=== PATIENT | male | born 1985 | race Two or more races ===

== ENCOUNTER 2017-07-01 05:45 | Day surgery (SDC) | payer OTHER ==
[2017-07-01] MEDS ORDERED: Lactated Ringers 1,000 ML IV SCH (07:00)
[2017-07-01] MEDS ORDERED: Povidone-Iodine 10% Soln 118.25 ML Bottle ONE (07:05)
[2017-07-01] MEDS ORDERED: Ondansetron 4 MG/2 ML SDV ONE (07:26)
[2017-07-01] MEDS ORDERED: Propofol 200 MG/20 ML SDV ONE (07:26)
[2017-07-01] MEDS ORDERED: Dexamethasone 4 MG/ML SDV ONE (07:26)
[2017-07-01] MEDS ORDERED: Midazolam 1 MG/ML 2 ML SDV ONE (07:26)
[2017-07-01] MEDS ORDERED: Glycopyrrolate 0.2 MG/ML 5 ML MDV ONE (07:26)
[2017-07-01] MEDS ORDERED: Neostigmine Methylsulfate 1 MG/ML 5 ML Syringe ONE (07:26)
[2017-07-01] MEDS ORDERED: Rocuronium 50 MG/5 ML Vial ONE (07:26)
[2017-07-01] MEDS ORDERED: Succinylcholine 200 MG/10 ML MDV ONE (07:26)
[2017-07-01] MEDS ORDERED: Clindamycin Phosphate 900 MG in Sodium Chloride 0.9% 100 ML IV ONE (07:30)
[2017-07-01] MEDS: Bupivacaine 0.5% 50 ML MDV ONE ×2 (08:03→08:49)
[2017-07-01] MEDS ORDERED: Lactated Ringers 1,000 ML ONE (08:45)
[2017-07-01] MEDS ORDERED: fentaNYL 100 MCG/2 ML SDV IVPUSH ONE (09:26)
[2017-07-01] MEDS ORDERED: Acetaminophen/HYDROcodone 325-5 MG Tab PO PRN (10:14)
[2017-07-01] MEDS ORDERED: Ketorolac 60 MG/2 ML SDV IM ONE (10:45)
[2017-07-01 11:04] VITALS: BP 124/94
--- NOTE | 2017-07-01 13:26 | OR ---
DATE OF PROCEDURE: 07/01/2017 PREOPERATIVE DIAGNOSES: Right thumb trigger thumb, right cubital tunnel syndrome, and right carpal tunnel syndrome. POSTOPERATIVE DIAGNOSES: Right carpal tunnel syndrome, right cubital tunnel syndrome, and right thumb ganglion cyst. PROCEDURE: Right carpal tunnel release, right ganglion cyst removal, and right ulnar nerve transposition. DEPUTY FELONY CLERK: MALATHI Gabriel. FLUID: Lactated Ringer's solution. ESTIMATED BLOOD LOSS: Less than 10 mL. COMPLICATIONS: None. SPECIMEN: None. DISCHARGE DISPOSITION: Stable to PACU. INDICATIONS FOR THE PROCEDURE: The patient was seen preoperatively in the clinic. He had bilateral mild carpal tunnel syndrome. However, he had physical findings more suggestive of moderate carpal tunnel syndrome as well as cubital tunnel syndrome. He also had a large nodule at the A1 evelia with triggering. Risks and benefits of the procedure were explained to the patient. Informed consent was obtained. DETAILS OF PROCEDURE: The patient was seen preoperatively by myself and the Anesthesia staff in the preoperative holding area where the operative site was marked. He was brought to the operative suite by Anesthesia staff where general anesthesia was administered. A well-padded tourniquet was placed on the right upper extremity. The right upper extremity was then prepped and draped in a sterile manner. Time-out was called identifying the correct patient, correct procedure, the correct site, and antibiotics had begun with appropriate period of time. The right upper extremity was exsanguinated. Tourniquet was raised to 250 mmHg for 46 minutes and let down prior to closure of the cubital tunnel. An incision was made just proximal to Veloz's cardinal line and the in line with the radial border of the 4th digit and carried down to the deep fascia. The self-retaining retractor was then used. The transverse carpal ligament was identified and gone through with a 15 blade. The deep palmar fascia was then incised with Mayos and direct visualization using a Ragnell after being freed with Metzenbaum scissors superficially and deeply. We then made an incision over the A1 evelia and then extended in a Liliana incision. A ganglion cyst was visualized and removed. I did not take this down to the joint, removed as much of the ganglion as I could. The A1 evelia did not have a nodule on it. We then closed both of those incisions with 3-0 nylon after irrigation. We then concentrated on the cubital tunnel. The tip of the olecranon was then identified as well as medial epicondyle. A longitudinal incision was made in the midline approximately 7 cm proximal and distal, carried down to the deep fascia. The ulnar nerve was identified after carefully dissecting using Metzenbaums and pickups. This was then freed proximally and distally and mobilized with a vessel loop. Bleeding was controlled with bipolar electrocautery. I then created myofascial sling and using 3-0 Vicryl, I was able to transpose the nerve up into the myofascial sling, was free with movement of flexion and extension of the elbow. We then let the tourniquet down and controlled bleeders with bipolar electrocautery as well as the Bovie electrocautery unit. We then closed the subcutaneous layer with 2-0 Vicryl suture as well as 3-0 nylon. We then placed Betadine-soaked Adaptic over our incisions followed by sterile dressing followed by Eliu wraps. The patient was then allowed to awaken from general anesthesia, taken to the PACU in stable condition. Rubén Salas DO /[id number]
== END 2017-07-01 11:08 | disposition home or self-care (01) ==
LOC: JP.SDS 05:45
PROVIDERS: ATTEND Orthopaedic Surgery
DX: M65.311 Trigger thumb, right thumb (principal); G56.01 Carpal tunnel syndrome, right upper limb; G56.21 Lesion of ulnar nerve, right upper limb; Z88.0 Allergy status to penicillin; Z79.899 Other long term (current) drug therapy
CPT/HCPCS: 26160; 64718; 64721; A9270; J1100; J1885; J2250; J2405; J2704; J2710; J3010; J7030; J7120; J0330; S0077

== ENCOUNTER 2017-07-06 16:48 | Emergency (ER) | payer OTHER | END 2017-07-06 17:08 | disposition left against medical advice (07) | LOC: JP.ED 16:48 | DX: Z53.21 Procedure and treatment not carried out due to patient leaving prior to being seen by health care provider (principal) ==

== ENCOUNTER 2017-07-29 07:04 | Day surgery (SDC) | payer OTHER ==
[~2017-07-29 07:04] MED LIST: Bupivacaine 0.5% 50 ML MDV ONE; Dexamethasone 4 MG/ML 5 ML MDV ONE; Povidone-Iodine 10% Soln 118.25 ML Bottle ONE
[2017-07-29] MEDS ORDERED: Midazolam 1 MG/ML 2 ML SDV ONE (07:24)
[2017-07-29] MEDS ORDERED: Lidocaine 0.5% 50 ML SDV ONE (07:24)
[2017-07-29] MEDS ORDERED: fentaNYL 100 MCG/2 ML SDV ONE (07:24)
[2017-07-29] MEDS ORDERED: Propofol 200 MG/20 ML SDV ONE ×2 (07:24→08:48)
[2017-07-29] MEDS ORDERED: Lactated Ringers 1,000 ML IV SCH (07:30)
[2017-07-29] MEDS ORDERED: Clindamycin Phosphate 900 MG in Sodium Chloride 0.9% 100 ML IV ONE (08:30)
[2017-07-29] MEDS ORDERED: fentaNYL 100 MCG/2 ML SDV IVPUSH ONE (09:25)
[2017-07-29] MEDS ORDERED: Acetaminophen/HYDROcodone 325-5 MG Tab PO ONE (10:20)
[2017-07-29 11:32] VITALS: BP 126/80
--- NOTE | 2017-07-30 11:47 | OR ---
DATE OF PROCEDURE: 07/29/2017 PREOPERATIVE DIAGNOSIS: Left carpal tunnel syndrome. POSTOPERATIVE DIAGNOSIS: Left carpal tunnel syndrome. PROCEDURE: Left carpal tunnel release. QUALITY IMPROVEMENT ENGINEER: MALATHI Gabriel. ANESTHESIA: Willie block plus conscious sedation. FLUID: Lactated Ringer solution. ESTIMATED BLOOD LOSS: Zero. COMPLICATIONS: None. SPECIMEN: None. DISCHARGE DISPOSITION: Stable to PACU. HISTORY AND INDICATION FOR THE PROCEDURE: The patient is well known to me. We had previously performed a right carpal tunnel surgery and a right cubital tunnel release, which he did very well from. Preoperative EMG showed evidence of mild entrapment of the median nerve at the wrist. Risks and benefits of the procedure were explained to the patient. Informed consent was obtained. DETAILS OF PROCEDURE: The patient was seen preoperatively by myself and the Anesthesia staff in the preoperative holding area, where the operative site was marked. He was brought to the operative suite by the Anesthesia staff, where a Willie block plus conscious sedation was administered. The left upper extremity was prepped and draped in a sterile manner. Time-out was called identifying the correct patient, the correct procedure, the correct site, and that the antibiotics had begun within appropriate period of time. An incision was made just proximal to Veloz's cardinal line in line with the radial border of the fourth digit, extending approximately 1.5 cm. Bleeding was controlled with bipolar electrocautery. Self-retraining retractors were used. The transverse carpal ligament was identified and gone through with a 15 blade. The median nerve was identified, and under direct visualization, using a Ragnell, I went above and below the deep palmar fascia with Metzenbaum scissors and then did direct release of that fascia under direct visualization. We then irrigated with saline. The incision was closed with 3-0 nylon and a sterile dressing was placed. The patient was kept in the OR until the [place] block could be let down at 30 minutes and taken to the PACU in a stable condition. Physician physician assistant primary care, Dena Abdi NP, played an essential role in assisting in this case, helping to position the patient, retract structures as needed, as well as suturing and cutting sutures as indicated. Her presence improved patient's safety and decreased operative time. Rubén Salas DO /[id number]
== END 2017-07-29 11:20 | disposition home or self-care (01) ==
LOC: JP.SDS 07:04
PROVIDERS: ATTEND Orthopaedic Surgery
DX: G56.02 Carpal tunnel syndrome, left upper limb (principal); G47.33 Obstructive sleep apnea (adult) (pediatric); F41.9 Anxiety disorder, unspecified; Z98.890 Other specified postprocedural states; Z88.0 Allergy status to penicillin; Z79.899 Other long term (current) drug therapy
CPT/HCPCS: 64721; A9270; J2250; J2704; J3010; J7030; J7120; J1100; S0077

== ENCOUNTER 2018-02-25 14:21 | Emergency (ER) | payer MEDICARE, OTHER | END 2018-02-25 15:42 | disposition left against medical advice (07) | LOC: JP.ED 14:21 | DX: Z53.21 Procedure and treatment not carried out due to patient leaving prior to being seen by health care provider (principal) ==

== ENCOUNTER 2018-03-21 14:43 | Emergency (ER) | payer MEDICARE, OTHER ==
[2018-03-21 15:15] VITALS: BP 121/65
--- NOTE | 2018-03-21 15:43 | EDM.PDOC ---
ED HPI GENERAL MEDICAL PROBLEM - General Chief Complaint: Upper Extremity Injury/Pain Stated Complaint: R HAND INJURY Time Seen by Provider: 03/21/18 15:30 Source of Information: Reports: Patient History Limitations: Reports: No Limitations - History of Present Illness INITIAL COMMENTS - FREE TEXT/NARRATIVE: 32-year-old male with a right hand injury. He dropped a large heavy box on his right hand last evening. Today it is swollen and painful. No other current injury. He does have chronic pain from bilateral ulnar neuropathy in his arms. Onset: Sudden Location: Reports: Upper Extremity, Right Severity: Moderate Right Hand Pain Score (Numeric/FACES): 7 - Related Data Allergies Allergy/AdvReac Type Severity Reaction Status Date / Time Penicillins Allergy Cannot Verified 03/21/18 15:15 Remember Home Meds: Home Meds Gabapentin [Neurontin] 150 mg PO DAILY 01/22/15 [History] oxyCODONE 10 mg PO .5XDAY 01/22/15 [History] Amitriptyline HCl 75 mg PO BEDTIME 06/16/17 [History] Rizatriptan [Maxalt LICENSED ARCHITECT] 10 mg PO ASDIRECTED PRN 07/01/17 [History] Past Medical History HEENT History: Reports: Allergic Rhinitis, Hard of Hearing, Sinusitis Cardiovascular History: Reports: None Respiratory History: Reports: Sleep Apnea Gastrointestinal History: Reports: None Genitourinary History: Reports: None Musculoskeletal History: Reports: Back Pain, Chronic, Fracture, Neck Pain, Chronic, Osteoarthritis, Other (See Below) Other Musculoskeletal History: L carpal tunnel pain Neurological History: Reports: Concussion, Migraines Psychiatric History: Reports: Anxiety, PTSD Endocrine/Metabolic History: Reports: None Hematologic History: Reports: Anemia Immunologic History: Reports: None Oncologic (Cancer) History: Reports: None Dermatologic History: Reports: None - Infectious Disease History Infectious Disease History: Reports: Chicken Pox - Past Surgical History Head Surgeries/Procedures: Reports: None HEENT Surgical History: Reports: LASIK, Tonsillectomy, Other (See Below) Other HEENT Surgeries/Procedures: Deviated septum Cardiovascular Surgical History: Reports: None Respiratory Surgical History: Reports: None GI Surgical History: Reports: EGD Endocrine Surgical History: Reports: None Neurological Surgical History: Reports: None Musculoskeletal Surgical History: Reports: Carpal Tunnel, Nerve Relocation Other Musculoskeletal Surgeries/Procedures:: right elbow Oncologic Surgical History: Reports: None Dermatological Surgical History: Reports: None Social & Family History - Family History Family Medical History: Noncontributory - Tobacco Use Smoking Status *Q: Current Every Day Smoker Years of Tobacco use: 12 Packs/Tins Daily: 0.5 - Caffeine Use Caffeine Use: Reports: Coffee - Recreational Drug Use Recreational Drug Use: No Review of Systems - Review of Systems Review Of Systems: See Below Constitutional: Denies: Fever Respiratory: Denies: Shortness of Breath GI/Abdominal: Denies: Abdominal Pain Skin: Reports: Bruising (Some bruising is present on the back of the hand) ED EXAM, GENERAL - Physical Exam Exam: See Below Exam Limited By: No Limitations General Appearance: Alert, No Apparent Distress Respiratory/Chest: No Respiratory Distress Extremities: Other (Remainder of exam is limited to the hands. Compared to the left, the right is swollen dorsally with tenderness to palpation over the metacarpals on the palmar and dorsal surface. No significant deformity or crepitus is felt.) Course - Vital Signs Last Recorded V/S: Last Vital Signs Temp 97.2 F 03/21/18 15:11 Pulse 91 03/21/18 15:11 Resp 16 03/21/18 15:11 BP 121/65 03/21/18 15:11 Pulse Ox 16 L 03/21/18 15:11 - Orders/Labs/Meds Orders: Active Orders 24 hr Category Date Time Status Hand Comp Min 3V Rt [CR] Stat Exams 03/21/18 15:38 Taken - Re-Assessments/Exams Free Text/Narrative Re-Assessment/Exam: 03/21/18 15:43 Right hand x-ray was obtained. 03/21/18 15:54 X-ray showed soft tissue swelling but no acute fracture. Patient was offered Eliu wraps but he says he has some at home. He just wanted to make sure there was nothing broken. He is going to increase activity as tolerated. Departure - Departure Time of Disposition: 16:17 Disposition: Home, Self-Care 01 Condition: Good Clinical Impression: Contusion of hand, right Qualifiers: Encounter type: initial encounter Qualified Code(s): S60.221A - Contusion of right hand, initial encounter - Discharge Information Instructions: Hand Contusion, [id number] Referrals: Michelle Glaser PA [Primary Care Provider] - Forms: ED Department Discharge Care Plan Goals: Ice to the swollen area may help, anti-inflammatories also may help and increase activity as tolerated. Recheck in 7-10 days if not improving satisfactorily. - My Orders Last 24 Hours: My Active Orders 03/21/18 15:38 Hand Comp Min 3V Rt [CR] Stat - Assessment/Plan Last 24 Hours: My Active Orders 03/21/18 15:38 Hand Comp Min 3V Rt [CR] Stat
--- NOTE | 2018-03-24 08:41 | CR ---
Tiny ossific density at the base of the fourth metacarpal may be degenerative or avulsion fragment. H and is otherwise intact.
== END 2018-03-21 16:17 | disposition home or self-care (01) ==
LOC: JP.ED 14:43
DX: S60.221A Contusion of right hand, initial encounter (principal); F17.210 Nicotine dependence, cigarettes, uncomplicated; Z88.0 Allergy status to penicillin; Z79.899 Other long term (current) drug therapy; W20.8XXA Other cause of strike by thrown, projected or falling object, initial encounter
CPT/HCPCS: 73130-26-RT; 73130-RT; 99284

== ENCOUNTER 2019-12-14 14:05 | Emergency (ER) | payer MEDICARE, OTHER ==
[2019-12-14 14:26] VITALS: BP 132/81; PULSE 74
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
== END 2019-12-14 15:54 | disposition home or self-care (01) ==
LOC: JP.ED 14:05
DX: M25.532 Pain in left wrist (principal); F41.9 Anxiety disorder, unspecified; G43.909 Migraine, unspecified, not intractable, without status migrainosus; F17.210 Nicotine dependence, cigarettes, uncomplicated; Z88.0 Allergy status to penicillin; Z79.899 Other long term (current) drug therapy
CPT/HCPCS: 73110-26-LT; 73110-LT; 99282; 99283-25

== ENCOUNTER 2022-05-17 23:18 | Emergency (ER) | payer MEDICARE, OTHER ==
[2022-05-17] MEDS ORDERED: HYDROmorphone 1 MG/ML Syringe IVPUSH ONE (23:32)
[2022-05-17] MEDS ORDERED: Diphtheria,Pertussis(Acell),Tetanus Vaccine 0.5 ML Syringe IM ONE (23:33)
[2022-05-17 23:34] VITALS: BP 138/98; PULSE 97
[2022-05-17] MEDS ORDERED: BACITRACIN TOP STA (23:48)
[2022-05-18] MEDS ORDERED: HYDROmorphone 0.5 MG/0.5 ML Syringe IVPUSH ONE (00:04)
[2022-05-18] MEDS ORDERED: Bacitracin Oint 1 GM U/D Packet TOP ONE (00:08)
== END 2022-05-18 00:51 | disposition home or self-care (01) ==
LOC: JP.ED 23:18
DX: T20.32XA Burn of third degree of lip(s), initial encounter (principal); T20.20XA Burn of second degree of head, face, and neck, unspecified site, initial encounter; T22.231A Burn of second degree of right upper arm, initial encounter; Z23 Encounter for immunization; Z79.899 Other long term (current) drug therapy; Z88.0 Allergy status to penicillin; X14.1XXA Other contact with hot air and other hot gases, initial encounter
CPT/HCPCS: 90471; 90715; 96374; 96376; 99283; A9270; J1170

== ENCOUNTER 2024-08-28 14:58 | Emergency (ER) | payer MEDICARE, OTHER ==
[2024-08-28 15:12] VITALS: BP 147/89; PULSE 85
== END 2024-08-28 16:35 | disposition home or self-care (01) ==
LOC: JP.ED 14:58
DX: J02.8 Acute pharyngitis due to other specified organisms (principal); F17.210 Nicotine dependence, cigarettes, uncomplicated; Z88.0 Allergy status to penicillin
CPT/HCPCS: 87651-QW; 99284